=== PATIENT | male | born 2000 | race American Indian/Alaskan Native ===

== ENCOUNTER 2020-08-03 13:02 | Emergency (ER) | payer SELFPAY ==
[2020-08-03 13:16] VITALS: BP 164/94
--- NOTE | 2020-08-03 13:33 | Emergency Department Report ---
- General Chief complaint: Skin Rash Stated complaint: RASH Time Seen by Provider: 08/03/20 13:24 Source: patient Mode of arrival: Ambulatory Limitations: No Limitations - History of Present Illness Initial comments: 20-year-old -Tong[place] male presents to the emergency room complaining of bilateral underarm rash that started after he used using new deodorant. Patient states he was using a gel deodorant that was not strong enough he went to a stick deodorant and now has broken out under both arms. Patient states that he tried using hydrocortisone yesterday it burned but then it helped. complaint: rash Onset/Timin -: week(s) - Related Data Previous Rx's Medication Instructions Recorded Last Taken Type Triamcinolone Acetonide 15 gm TP BID 10 Days #15 oint...g. 08/03/20 Unknown Rx [Triamcinolone Acetonide Oint 0.5%] Allergies Allergy/AdvReac Type Severity Reaction Status Date / Time No Known Allergies Allergy Unverified 08/03/20 13:13 Abscess Boil HPI - HPI Chief Complaint: Skin Rash Stated Complaint: RASH Time Seen by Provider: 08/03/20 13:24 Home Medications: Previous Rx's Medication Instructions Recorded Last Taken Type Triamcinolone Acetonide 15 gm TP BID 10 Days #15 oint...g. 08/03/20 Unknown Rx [Triamcinolone Acetonide Oint 0.5%] Allergies/Adverse Reactions: Allergies Allergy/AdvReac Type Severity Reaction Status Date / Time No Known Allergies Allergy Unverified 08/03/20 13:13 ED Review of Systems ROS: Stated complaint: RASH Other details as noted in HPI Comment: All other systems reviewed and negative ED Past Medical Hx - Past Medical History Previous Medical History?: No - Surgical History Past Surgical History?: No - Social History Smoking Status: Current Every Day Smoker Substance Use Type: None - Medications Home Medications: Home Medications Medication Instructions Recorded Confirmed Last Taken Type Triamcinolone Acetonide 15 gm TP BID 10 Days #15 oint...g. 08/03/20 Unknown Rx [Triamcinolone Acetonide Oint 0.5%] ED Physical Exam - General Limitations: No Limitations General appearance: alert, in no apparent distress - Head Head exam: Present: atraumatic, normocephalic - Eye Eye exam: Present: normal appearance - Respiratory Respiratory exam: Absent: accessory muscle use - Cardiovascular Cardiovascular Exam: Present: regular rate, normal rhythm. Absent: systolic murmur, diastolic murmur, rubs, gallop - Neurological Exam Neurological exam: Present: alert, oriented X3, normal gait - Psychiatric Psychiatric exam: Present: normal affect, normal mood - Skin Skin exam: Present: rash, erythema - Expanded Skin Exam Expanded Distribution of rash: RUE (Axillary), LUE (Axillary) Description of rash: Present: tenderness, erythematous, other (Pustular) ED Course Vital Signs 08/03/20 13:13 Temperature 98.1 F Pulse Rate 93 H Respiratory 18 Rate Blood Pressure 164/94 O2 Sat by Pulse 100 Oximetry ED Medical Decision Making - Medical Decision Making 20-year-old -[place] male presents to the emergency room complaining of bilateral underarm rash that started after he used using new deodorant. Patient states he was using a gel deodorant that was not strong enough he went to a stick deodorant and now has broken out under both arms. Patient states that he tried using hydrocortisone yesterday it burned but then it helped. Discussed with patient to avoid using the deodorant. Clean and pat dry place triamcinolone ointment to underarms at least twice a day and if no improvement follow-up with a multineedle shirrer. Critical care attestation.: If time is entered above; I have spent that time in minutes in the direct care of this critically ill patient, excluding procedure time. ED Disposition Clinical Impression: Rash and nonspecific skin eruption Disposition: DC- TO HOME OR SELFCARE Is pt being admited?: No Does the pt Need Aspirin: No Condition: Stable Instructions: Rash, Adult, [id number] Additional Instructions: Try steroid cream if no improvement follow-up with her multineedle shirrer I have listed 1 below for your convenience. Prescriptions: Triamcinolone Acetonide [Triamcinolone Acetonide Oint 0.5%] 15 gm TP BID 10 Days #15 oint...g. Referrals: [facility] [Provider Group] - 3-5 Days
== END 2020-08-03 13:57 | disposition home or self-care (01) ==
LOC: ED 13:02
DX: R21 Rash and other nonspecific skin eruption (principal); F17.200 Nicotine dependence, unspecified, uncomplicated; Z79.899 Other long term (current) drug therapy
CPT/HCPCS: 99282